=== PATIENT | female | born 1965 | race Caucasian/White ===

== ENCOUNTER 2018-12-16 20:52 | Emergency (ER) | payer SELFPAY ==
[~2018-12-16] VITALS: Ht 160 cm; Wt 69.0 kg
[2018-12-17] MEDS ORDERED: BACITRACIN ZINC OINT UDPKT TOP ONE (00:45)
[2018-12-17] MEDS ORDERED: LIDOCAINE HCL/PF 1% 10 MG/ML 5ML VIAL IJ ONE (00:45)
[2018-12-17] MEDS ORDERED: TETANUS, DIPHTHERIA, PERTUSSIS VAC/PF 0.5ML (>7YR OLD) IM ONE (00:45)
[2018-12-17] MEDS ORDERED: IBUPROFEN 600MG TABLET PO ONE (01:45)
[2018-12-17 01:55] VITALS: BP 116/80
== END 2018-12-17 02:12 | disposition home or self-care (01) ==
LOC: ER 20:52
DX: L02.31 Cutaneous abscess of buttock (principal); E11.9 Type 2 diabetes mellitus without complications; I25.10 Atherosclerotic heart disease of native coronary artery without angina pectoris; Z95.1 Presence of aortocoronary bypass graft
CPT/HCPCS: 99283; A4217; J3490; Z7610; 90715